=== PATIENT | female | born 1955 | race Caucasian/White ===

== ENCOUNTER 2016-11-08 05:19 | Emergency (ER) | payer OTHER ==
[~2016-11-08] VITALS: Ht 162.6 cm; Wt 117.9 kg
[~2016-11-08 05:19] MED LIST: BENZAPRIL; CARISOPRODOL 3350 MG PO; DICLOFENAC SODI25 MG PO; FUROSEMIDE 20 M20 M1 PO; LEVOTHYROXIN0.025 M1 PG; NORCO 5-325 TA1 EACH PO; PRINIVIL20 M1 PO; TRAMADOL 50 MG50 MG PO; VICODIN 5-5001 EACH PO; ZANAFLEX4 MG PO; ZOCOR 10 MG TAB10 MG PO
[2016-11-08 05:57] LABS: URINE BILIRUBIN NEGATIVE (Negative); URINE BLOOD TRACE (Negative); URINE COLOR YELLOW; URINE GLUCOSE-RANDOM* NEGATIVE (Negative); URINE KETONES NEGATIVE (Negative); URINE PROTEIN (DIPSTICK) NEGATIVE (Negative); URINE UROBILINOGEN 0.2 E.U./dl (0.2-1.0)
[2016-11-08 05:58] LABS: URINE LEUKOCYTES-REFLEX TRACE (Negative)
[2016-11-08 06:33] LABS: ABSOLUTE NEUTROPHILS 3.5 thou/uL (1.4-8.2); EOSINOPHILS 4.4 % (0.0-3.0); HEMATOCRIT 39.2 % (37.0-47.0); HEMOGLOBIN 13.1 gm/dL (12.0-15.0); LYMPHOCYTES 27.9 % (24.0-44.0); MCHC 33.4 g/dL (28.0-37.0); MCV 86.8 fL (80.0-100.0); PLATELET COUNT 274 thou/uL (150-400); POLYS 59.7 % (36.0-66.0); RBC 4.52 mil/uL (4.20-5.00); RDW 13.9 % (10.5-14.5); WBC 5.9 thou/uL (4.0-11.0)
[2016-11-08 06:42] LABS: CALCIUM 9.1 mg/dL (8.5-10.1); CREATININE 0.9 mg/dL (0.6-1.0)
[2016-11-08 06:52] LABS: MANUAL DIFF NO
[2016-11-08 06:56] LABS: ALBUMIN 3.6 g/dL (3.4-5.0); TOTAL BILIRUBIN 0.6 mg/dL (<0.1-1.0); TOTAL PROTEIN 7.1 g/dL (6.4-8.2)
[2016-11-08] MEDS ORDERED: MOBIC15 MG PO (07:27)
[2016-11-08 08:09] VITALS: BP 129/72
== END 2016-11-08 08:11 | disposition home or self-care (01) ==
LOC: ER 05:19
PROVIDERS: Emergency Medicine
DX: M54.6 Pain in thoracic spine (principal); I10 Essential (primary) hypertension; E78.00 Pure hypercholesterolemia, unspecified; E03.9 Hypothyroidism, unspecified; Z90.710 Acquired absence of both cervix and uterus; Z90.49 Acquired absence of other specified parts of digestive tract; Z98.890 Other specified postprocedural states

== ENCOUNTER 2016-11-10 10:46 | Emergency (ER) | payer OTHER ==
[~2016-11-10] VITALS: Ht 162.6 cm; Wt 117.9 kg
[~2016-11-10 10:46] MED LIST changes: +MOBIC15 MG PO
[2016-11-10] MEDS ORDERED: LIPITOR10 MG PO (11:23)
[2016-11-10] MEDS ORDERED: LEVOTHYROXIN0.125 M1 PO (11:24)
[2016-11-10] MEDS ORDERED: DICLOFENAC SODI75 MG PO (11:24)
[2016-11-10] MEDS ORDERED: DITROPAN XL10 MG PO (11:24)
[2016-11-10 12:42] LABS: URINE BILIRUBIN NEGATIVE (Negative); URINE BLOOD TRACE (Negative); URINE COLOR YELLOW; URINE GLUCOSE-RANDOM* NEGATIVE (Negative); URINE KETONES NEGATIVE (Negative); URINE PROTEIN (DIPSTICK) NEGATIVE (Negative); URINE SPECIFIC GRAVITY 1.025 (1.003-1.035); URINE UROBILINOGEN 0.2 E.U./dl (0.2-1.0)
[2016-11-10 12:47] LABS: URINE LEUKOCYTES-REFLEX TRACE (Negative)
[2016-11-10] MEDS ORDERED: FLEXERIL PO (13:12)
[2016-11-10] MEDS ORDERED: HYDROCODONE-AP1 EAC6 PO (13:12)
[2016-11-10 13:21] VITALS: BP 166/97
[2016-11-10] MEDS ORDERED: KEFLEX500 MG PO (13:25)
[2016-11-10 13:30] LABS: CASTS None Seen /LPF (None Seen); CRYSTALS None Seen /LPF (None Seen); SQUAMOUS >10 Many /LPF (0-3); URINE RBC 0-2 Rare /HPF (0-2); URINE WBC-REFLEX >25 Many /HPF (0-5)
== END 2016-11-10 13:51 | disposition home or self-care (01) ==
LOC: ER 10:46
PROVIDERS: Physician Assistant
DX: R07.81 Pleurodynia (principal); N39.0 Urinary tract infection, site not specified; I10 Essential (primary) hypertension; E03.9 Hypothyroidism, unspecified; E78.00 Pure hypercholesterolemia, unspecified; Z90.710 Acquired absence of both cervix and uterus; Z98.890 Other specified postprocedural states